=== PATIENT | male | born 1990 | race Caucasian/White ===

== ENCOUNTER 2021-02-19 13:20 | Outpatient (REF) | payer MEDICAID, SELFPAY ==
--- NOTE | 2021-02-19 13:00 | EEG_ITS ---
The waking background activity consists of a well-defined moderate voltage, 11 hertz posterior alpha frequency that is seen symmetrically and attenuates well with eye opening while low-voltage fast frequencies predominant anteriorly. Drowsiness is characterized with diffuse theta slowing. During sleep, symmetrical frontal, central sleep spindles develop over both hemispheres. Arousals are unremarkable. The patient remains asymptomatic. No focal, lateralizing, or paroxysmal discharges seen. IMPRESSION: This 24-hour ambulatory EEG is within normal limits. MD LEMUEL Crouch/[place] / [id number]
== END 2021-02-19 13:21 | disposition home or self-care (01) ==
LOC: HO.NEURO 13:20
PROVIDERS: Visit Provider Psychiatry & Neurology Neurology
DX: G40.209 Localization-related (focal) (partial) symptomatic epilepsy and epileptic syndromes with complex partial seizures, not intractable, without status epilepticus (principal); G47.50 Parasomnia, unspecified
CPT/HCPCS: 95708

== ENCOUNTER 2021-09-10 12:43 | Outpatient (REF) | payer MEDICAID, SELFPAY ==
[2021-09-10 12:59] LABS: MANUAL DIFF FLAG NO
[2021-09-10 13:11] LABS: Basophils Percent Auto 0.4 % (0-2); Eosinophils Absolute Auto 0.2 X10*3/uL (0.0-0.4); Hematocrit 43.3 % (42.0-52.0); Hemoglobin 14.7 g/dl (14.0-18.0); Imm Gran Abs Auto 0.04 X10*3/uL (0.00-0.03); Imm Gran Pct Auto 0.5 % (0.0-0.4); Lymphocytes Absolute Auto 2.5 X10*3/uL (1.2-4.9); Lymphocytes Percent Auto 33.6 % (20-40); Mean Corpuscular HGB Conc 33.9 g/dl (31.0-36.0); Mean Corpuscular Hemoglobin 30.4 pg (27.0-33.0); Mean Corpuscular Volume 89.6 fL (80.0-98.0); Mean Platelet Volume 12.1 fL (9.4-12.4); Monocytes Absolute Auto 0.6 X10*3/uL (0.1-1.2); Monocytes Percent Auto 7.9 % (2-11); Neutrophils Absolute Auto 4.2 x10*3/uL (2.0-8.3); Neutrophils Percent Auto 55.6 % (45-73); Platelet Count 190 X10*3/uL (160-400); Red Blood Count 4.83 X10*6/uL (4.60-5.80); Red Cell Distribution Width 12.4 % (11.0-16.0); White Blood Count 7.5 X10*3/uL (4.8-10.8)
[2021-09-10 13:39] LABS: Alanine Aminotransferase 36 U/L (0-40); Albumin Level 4.2 g/dL (3.5-5.0); Alkaline Phosphatase 83 U/L (39-117); Anion Gap 12 (12-20); Aspartate Amino Transferase 21 U/L (5-37); Bilirubin Total 0.3 mg/dL (0.0-1.0); Blood Urea Nitrogen 11 mg/dL (9-16); Calcium 9.5 mg/dL (8.4-10.2); Carbon Dioxide 25 mmol/L (22-29); Chloride 109 mmol/L (96-108); Estimated Glomerular Filt Rate > 60; Glucose Fasting 112 mg/dL (60-99); Potassium 4.2 mmol/L (3.3-5.1); Sodium 142 mmol/L (135-145); Total Protein 7.5 g/dL (6.5-8.0)
[2021-09-10 13:54] LABS: TSH reflex Free T4 1.07 uIU/mL (0.32-4.0)
[2021-09-10 14:08] LABS: Rheumatoid Factor < 15.0 IU/mL (<15.0)
[2021-09-10 14:40] LABS: Erythrocyte Sedimentation Rate 11 MM/HR (0-15)
[2021-09-10 14:41] LABS: Appearance Urine CLEAR; Color Urine YELLOW; Glucose Urine UA NEG (NEG); Leukocyte Esterase Urine NEG (NEG); Nitrite Urine NEG (NEG); Specific Gravity - Urine >= 1.030 (1.005-1.025); Urine Blood NEG (NEG); Urine Ketones 5 MG/DL (NEG); Urine Protein NEG (NEG-TRACE)
[2021-09-12 13:32] LABS: CRP High Sensitivity 3.6 mg/L
[2021-09-12 18:57] LABS: Lyme Abs Screen <0.90 index
[2021-09-16 15:26] LABS: Anti Nuclear Antibody Pattern Nuclear, Homogeneous; Anti Nuclear Antibody Screen POSITIVE (NEGATIVE)
== END 2021-09-10 12:44 | disposition home or self-care (01) ==
LOC: HO.LAB 12:43
PROVIDERS: PCP Nurse Practitioner Family; Visit Provider Family Medicine
DX: Z00.00 Encounter for general adult medical examination without abnormal findings (principal); M25.50 Pain in unspecified joint
CPT/HCPCS: 36415; 80053; 81003; 84443; 85025; 85652; 86038; 86039; 86141; 86431; 86617; 86618

== ENCOUNTER 2021-09-27 11:37 | Outpatient (REF) | payer MEDICAID, SELFPAY ==
[2021-09-27 14:28] LABS: Estimated Average Glucose 85 mg/dL; Hemoglobin A1c % 4.6 %
== END 2021-09-27 11:38 | disposition home or self-care (01) ==
LOC: HO.WFDLDS 11:37
PROVIDERS: Visit Provider Family Medicine
DX: R73.01 Impaired fasting glucose (principal)
CPT/HCPCS: 36415; 83036

== ENCOUNTER 2022-04-22 13:35 | Outpatient (REF) | payer MEDICARE, MEDICAID, SELFPAY ==
--- NOTE | ~2022-04-22 | XR_ITS ---
EXAMINATION: XR PELVIS CLINICAL INFORMATION: Sacrococcygeal pain. COMPARISON: 10/06/2018 TECHNIQUE: AP view of the pelvis. FINDINGS: Mild sclerotic changes of the sacroiliac joint. Pubic symphysis is intact. The sacrum is partially obscured by overlying bowel contents. Hip joint appear symmetric. No abnormal soft tissue calcification. XR/XR pelvis 1-2V IMPRESSION: Mild right sacroiliitis.
== END 2022-04-22 13:36 | disposition home or self-care (01) ==
LOC: HO.XRAY 13:35
PROVIDERS: PCP Family Medicine; Visit Provider Nurse Practitioner Family
DX: M53.3 Sacrococcygeal disorders, not elsewhere classified (principal); R79.82 Elevated C-reactive protein (CRP); R76.8 Other specified abnormal immunological findings in serum; M25.50 Pain in unspecified joint
CPT/HCPCS: 72170; 99202

== ENCOUNTER 2022-06-04 14:00 | Outpatient (RCR) | payer MEDICAID, SELFPAY ==
--- NOTE | 2022-05-02 17:04 | MHC.PT.EP ---
[facility] [place] Office [place] Office [place] Office [address] Rosi Philip [address] [phone] F: [phone] F: [phone] F: [phone] F: [phone] Physical Therapy Plan of Care Date of Evaluation: Date of Surgery: Diagnosis: SI joint pain Assessment: Pt is a 31 y/o male with relatively new onset of polyarthralgia is referred to PT for eval and treat of SI joint pain resulting in decreased tolerance for standing and walking for duration, tolerating static postures, lifting objects of weight and disturbed sleep secondary to decreased core and hip strength, decreased lumbar ROM, increased lumbar tissue tension, lumbar instability and evidence of mild R sacroiliitis on XR. Pt is deemed an appropriate candidate to receive skilled PT in order to address his physical limitations to improve his functional ability. Frequency and Duration: The patient will be seen 2 x / wk x 6 wks. Short Term Goals: Initiate HEP with evidence of compliance. Improve baseline pain with activity from 8/10 to < 6/10. Licensing Director Goals: I with HEP. Pt will be able to tolerate standing tasks > 1 hour; initial: 10 min. Pt will report no more than 1/4 disturbed night's sleep d/t back pain; initial: 3/4 disturbed. Improve core strength to > good; initial fair (-) limited by weakness and pain. Treatment Plan: Modalities to reduce pain, spasms and effusion. Manual therapy to restore motion and function. Therapeutic exercise to improve strength and flexibility. Neuromuscular re-education for posture and balance. Therapeutic activities to return to functional activities of daily living. Electronically signed by: Michael Potts PT. Please sign and return to therapist. Thank you for your referral.
--- NOTE | 2022-09-18 15:11 | MHC.PT.DC ---
[facility] [place] Office [place] Office [place] Office [address] Rosi Philip [address] [phone] F: [phone] F: [phone] F: [phone] F: [phone] Physical Therapy Discharge Report Diagnosis: SI joint pain Date of Surgery: Date of Evaluation: 05/02/22 Date of Discharge: 09/18/22 Treatments to Date: 6 Cancellations to Date: 2 No Shows to Date: 3 Discharge Status: Visit Non-compliance Discharge Summary: Pt returns after a couple of difficulty weeks for personal reasons. returned to basics of lumbar stab with needed review. good overall tolerance for activities. No adverse effects. Progress NV. as angel. Pt to 1 x/ wk Electronically signed by: Michael Potts PT. Please sign and return to therapist. Thank you for your referral.
== END 2022-09-18 14:56 | disposition home or self-care (01) ==
LOC: HO.PTCHIC 14:00
PROVIDERS: PCP Family Medicine; Visit Provider Nurse Practitioner Family
DX: M53.3 Sacrococcygeal disorders, not elsewhere classified (principal)
CPT/HCPCS: 97110; 97140; 97161

== ENCOUNTER 2023-09-02 14:38 | Outpatient (AMB) | payer SELFPAY ==
[2023-09-02 14:54] VITALS: BP 138/78; PULSE 110; O2SAT 99; BMI 27.2
--- NOTE | 2023-09-02 14:54 | MHC.PC.OV ---
Vital Signs 09/02/23 14:54 Height 6 ft 2 in Weight 212 lb 4 oz BMI 27.2 BP 138/78 Blood Pressure Location Lt brachial Position Sitting Pulse 110 H Pulse Source Pulse Oximeter Pulse Oximetry (%) 99 Oxygen Delivery Method Room Air Intake Visit Reasons: Follow up polyarthralgia, and meds Intake Note: Patient is following up on polyarthralgia and medications. 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 Allergies Penicillins [PENICILLINS] Allergy (Intermediate, Verified 09/02/23 14:59) RASH allium Adverse Reaction (Severe, Uncoded 09/02/23 14:59) Abdominal Pain Tobacco use date assessed: 11/07/22 HPI Follow up polyarthralgia, and meds HPI Details 32 y/o male presents to f/u polyarthalgia and meds. Has been diagnosed with ankylosing spondylitis. He reports he has been using prednisone every now and then for relief. He reports he has not been using other medications as he had been worried about them affecting his liver enzymes. Pt notes he needs refrigeration for his meds and electricity has been shut off. He is requesting a note for this. HPI Comments History of Present Illness Details Documentation assistance for Nicholas Ochoa MD, was provided by Casey Lopez, Electron Beam Machine Welder Setter on 09/02/2023 3:01 PM FERNANDA. Brian, Dr. Ochoa, have read, observed, and verified documentation. [facility] Medical History (Updated 11/07/22 @ 15:24 by Casey Lopez) Migraines Erectile dysfunction ADD (attention deficit disorder) Bipolar 1 disorder Surgical History History of endoscopy Family History Other Mental health disorder Substance use disorder Social History Housing: Apartment Alcohol intake: current Alcohol intake frequency: a few times a month Patient Tobacco Use Status: Current everyday Tobacco user Tobacco use type: Cigarette, Cigar and Pipe Cigarette Packs Per Day: 1 e-Cigarette/Vaping Use: Currently Using Second Hand Smoke Exposure: No service: No Current occupational status: employed 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 Pancho Jackson, Navya Lr, Isai Zhang and colleagues, with an educational rosangela from [employer]. Review of Systems Const Denies chills, Denies fatigue, Denies fever(s), Denies headache(s) and Denies weakness ENT Denies dizziness and Denies headache(s) Card Denies dyspnea Resp Denies cough, Denies dyspnea, Denies wheezing and Denies other (shortness of breath) Musc Denies numbness and Denies tingling Neuro Denies dizziness, Denies headache(s), Denies numbness, Denies tingling and Denies weakness Psych Denies anxiety and Denies depression Endo Denies fatigue Aller/Immun Denies wheezing Physical exam (Primary Care) Vital Signs: Last Vital Signs Pulse 110 H 09/02/23 14:54 BP 138/78 09/02/23 14:54 Pulse Ox 99 09/02/23 14:54 Oxygen Delivery Method Room Air 09/02/23 14:54 BMI result Body Mass Index 27.2 Tobacco/Smoking Status: Tobacco use Status Tobacco use date assessed 11/07/22 09/02/23 15:00 Patient Tobacco Use Status Current everyday Tobacco 09/02/23 15:00 Tobacco use type Cigarette,Pipe,Cigar 09/02/23 15:00 e-Cigarette/Vaping Use Currently Using 09/02/23 15:00 Thrive Assessment: Date of Thrive Assessment Date Thrive assessed 11/07/22 09/02/23 15:00 Const General: well developed; No acute distress Nutritional Appearance: well nourished Orientation/consciousness: patient oriented x3 HENMT Head: Yes normocephalic and Yes atraumatic Eyes General: appearance normal, both eyes and all related structures Pupils: Equal, round and reactive pupils present EOM: EOMs intact bilaterally Resp Effort & Inspection: normal respiratory effort Neuro General: patient oriented x3 and gait normal Cranial nerves: Yes Equal, round and reactive pupils present Psych Affect: normal affect Assessment and Plan Assessment & Plan (1) Polyarthralgia: Comment: Code(s): M25.50 - Pain in unspecified joint Plan: Ongoing?polyarthralgia?and?back?pain?and?history?of?ankylosing?spondylitis. He?is?using?prednisone?as?treatment. He?has?not?seen?a?crushing machine operator?in?quite?some?time We?discussed?that?long-term?prednisone?can?have?significant?adverse?effects?and?I?would?like?him?to?see?a?crushing machine operator?again?to?see?if?other?treatments?will?be?helpful?so?he?can?rely?less?on?prednisone. Will?give?him?meloxicam?in?the?meantime?to?see?if?he?can?wean?down?prednisone?use. Has?been?on?Humira?and?should?have?this?managed?by?Rheumatology (2) Ankylosing spondylitis: Code(s): M45.9 - Ankylosing spondylitis of unspecified sites in spine Plan: As?above (3) Hidradenitis: Code(s): L73.2 - Hidradenitis suppurativa Plan: Patient?currently?on?Humira Patient?notes?that?he?needs?refrigeration?for?some?of?his?medications?and?electricity?has?been?shut?off Will?fill?out?forms?for?patient Orders: Referrals Rheumatology Referral L73.2 - Hidradenitis suppurativa, M25.50 - Pain in unspecified joint, M45.9 - Ankylosing spondylitis of unspecified sites in spine Medications: New meloxicam 15 mg PO DAILY 30 tabs 2RF 30 days M45.9 - Ankylosing spondylitis of unspecified sites in spine Coding Level of Care Code Est Pt Level 4 (57978) Diagnoses Polyarthralgia M25.50 Ankylosing spondylitis M45.9 Hidradenitis L73.2
== END 2023-09-02 15:32 | disposition home or self-care (01) ==
PROVIDERS: PCP Family Medicine; Visit Provider Family Medicine
DX: M25.50 Pain in unspecified joint (principal); M45.9 Ankylosing spondylitis of unspecified sites in spine; L73.2 Hidradenitis suppurativa
CPT/HCPCS: 99214

== ENCOUNTER 2023-09-22 09:56 | Outpatient (AMB) | payer MEDICAID, SELFPAY ==
[2023-09-22 09:58] VITALS: BP 98/60; PULSE 125; TEMP 36.4; O2SAT 98; BMI 26.5
--- NOTE | 2023-09-22 09:58 | A.OFFVIS_ITS ---
Intake Vital Signs 09/22/23 09:58 Height 6 ft 2 in Weight 206 lb 9.17 oz BMI 26.5 BP 98/60 Blood Pressure Location Rt brachial Position Sitting Pulse 125 H Pulse Source Pulse Oximeter Temp 97.6 F Temp Source Skin Pulse Oximetry (%) 98 Oxygen Delivery Method Room Air Intake Visit Reasons: Ankylosing spondylitis Intake Note: New patient internally referred to us presents today for ankylosing spondylitis. Previously seeing Dr. Lockhart. Reports tere middle trigger finger x 2 years Home Care Manager Rn Required: No Accompanied by: Self / Same As Patient Allergies Penicillins [PENICILLINS] Allergy (Intermediate, Verified 09/22/23 09:58) RASH allium Adverse Reaction (Severe, Uncoded 09/22/23 09:58) Abdominal Pain HPI HPI Comments History of Present Illness Details Keith Slater is a pleasant 32 year old male who presents today with complaints of multiple joint pain, more severe to his right SI joint. He states the pain started suddenly around February 2021 and thinks it was related to taking Humira. The humira was prescribed by his field human resources manager for hidradenitis suppurativa with good effect but had he stopped due to possibility of medication contributing to his joint pain. However, he noticed that even six months after stopping the Humira the pain continued and has progressively worsened since. He reports pain in his shoulders, hands, elbows, knees and from his hips. He denies any numbness, tingling, saddle anesthesia, weakness or bowel/bladder dysfunction. He was referred to [facility] for Ankylosing Spondylitis in December [address] was evaluated [address] Lockhart with no findings. He has also been under the care of rheumatology through [facility] due to elevated inflammtory markers but states no treatments were offered. He has been prescribed prednisone by his PCP since August 2021 which has been effective. He currently takes prednisone 10 mg q.d.. And has been tapering from 15 mg q.d. due to PCP's warning on concerns for long-term side effects such as bone loss. He reports pain onset was constant and rates the pain a 5-10/10. He states the pain is interfering with sleep, activities of daily living and he cannot function normally. The patient reports the pain aching, stabbing and throbbing. The pain is exacerbated by prolonged sitting/standing as well as activity, such as flexion of hips. He has also been taking tylenol, meloxicam, voltaren and CBD with partial relief. He denies any physical therapy, chiropractic manipula tion, massage or acupuncture. Denies any previous back injections or surgery. Denies any imaging of the pelvis. He believes he had some imaging of his hands and knees performed at [facility] which were reportedly normal. He denies psoriasis, uveitis, dactylitis, plantar fasciitis, Crohn's, and ulcerative colitis. He has stiffness especially in hips and and lower back. He admits to tenderness and tightness to bilateral Achilles tendons. Upon further inquiry for connective tissue disease (CTD), patient denies Raynaud's phenomenon, butterfly rash on face or other rashes; denies photosensitivity - getting sick or developing a rash from being out in the sun; denies blood or froth in urine; patient denies hx of SOB, chest pain. Patient denies hx of Carditis or Pleuritis. Patient denies any history of DVT/PE. Denies fevers, excessive fatigue, unexplained weight-loss or weight-gain, Denies: thinning hair or hair loss; Denies: dry, itchy eyes, red burning eyes needing steroids to treat; dry mouth, mouth sores or ulcers; nose bleed; ringing in the ear. He has a history of IBS with occasional abdominal pain, constipation and diarrhea, but denies blood or mucous in stool, nausea and vomiting, difficulty swallowing and heartburn. He has Psychological history significant for Bipolar Disorder and is well managed. Malignancy screening: denies personal cancer hx. 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 Migraines Erectile dysfunction ADD (attention deficit disorder) Bipolar 1 disorder Surgical History History of endoscopy Family History (Updated 09/22/23 @ 10:03 by ROSA Knowles) Mother Lupus Father Ankylosing spondylitis Other Mental health disorder Substance use disorder Social History (Updated 09/22/23 @ 10:02 by ROSA Knowles) Housing: Apartment Alcohol intake: current Alcohol intake frequency: a few times a month Patient Tobacco Use Status: Current everyday Tobacco user Tobacco use type: Smokeless Tobacco Cigarette Packs Per Day: 1 e-Cigarette/Vaping Use: Currently Using Second Hand Smoke Exposure: No service: No Current occupational status: employed 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 External ear normal, canal clear and tympanic membrane normal. NOSE/SINUS:? Airflow through both nares, no nasal discharge, no bleeding THROAT:? Oral mucosa moist, no ulcerations NECK:? No thyromegaly or masses, no adenopathy, trachea midline. HEART:? Regulrar rhythm, S1-S2 heard, no murmurs, rubs or gallops. LUNG:? Clear to percussion and auscultation ABD:? Normal bowel sounds, no organomegaly, masses or tenderness. EXTREMITIES:? No edema, no calf tenderness, normal peripheral pulses. NEURO:? Oriented and alert x3.? No focal weakness.? Reflexes symmetric.? Gait normal. SKIN:? HS to bilateral axilla and groin. No objective signs of Raynaud's phenomenon. JOINT EXAM: Cervical Spine:.? Full range of motion without pain; no tenderness. Thoracic Spine:.? No scoliosis.? No tenderness on palpation. Lumbar Spine:.? Alignment normal.? Full range of motion without pain, no tenderness. Unable to touch toes, flexion with stiffness Chest Wall:.? No tenderness, swelling, increased warmth or erythema. Hands:.? Normal pain-free range of motion without tenderness, swelling, increased warmth or erythema. Able to make a full fist and has a good technology integration specialist strength. Wrists:.? Normal pain-free range of motion without tenderness, swelling, increased warmth or erythema. Elbows:. Normal pain-free range of motion without tenderness, swelling, increased warmth or erythema. Shoulders:.?? Full range of motion without pain. No tenderness, weakness, swelling, increased warmth or erythema. Hips:.? Full range of motion without pain. Hip bursa:.? No tenderness. Knees:.?? Normal pain-free range of motion without tenderness, swelling, increased warmth or erythema.? There is no effusion or crepitation Ankles:.? Normal pain-free range of motion without tenderness, swelling, increased warmth or erythema. Tender achilles bilateral Feet:.? Normal pain-free range of motion without tenderness, swelling, increased warmth or erythema. Tender points:? No tenderness to digital palpation at the occiput, trapezius, second rib, lateral epicondyle, knees, greater trochanter and gluteal area bilaterally. Results Reviewed Results Reviewed: Laboratory Tests 09/10/21 12:57 Rheumatoid Factor < 15.0 IAIN Screen POSITIVE A IAIN Titer 1:640 H Lyme Screen IgG & IgM <0.90 04/22/2022 pelvic x-ray COMPARISON: 10/06/2018 TECHNIQUE: AP view of the pelvis. FINDINGS: Mild sclerotic changes of the sacroiliac joint. Pubic symphysis is intact. The sacrum is partially obscured by overlying bowel contents. Hip joint appear symmetric. No abnormal soft tissue calcification. XR/XR pelvis 1-2V IMPRESSION: Mild right sacroiliitis. 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 The clinical history reflects that he was taking Humira for hidradenitis Superativa and when that was stopped his lower back, hips and SI joint pain started. He is in the demographics I have reviewed Xrays that shows Sacroillitis, and lower back DDD. The patient's complaints of severe, hip pain, and intermittent peripheral joint pain, achilles tenderness, elbow tendinitis, father with and the therapeutic response to Prednisone, helps to complete the picture. Given that the patient was on Humira before, I think it is appropriate to restart HUMIRA to treat the and simultaneously address the HS. I will obtain updated lumbar and SI joint x-rays and labs. Hidradenitis Suppurativa: The patient had stop taking the Humira due to concerns of inappropriate dosing and when his pain started further misunderstood thinking Humira might have been the cause for his joint pain He does admit that HUMIRA was effective for the HS. #Senior Ui Developer Use of Immunosuppressant: I reviewed and patient was already aware of the possible side effects of using Humira; verbalized understanding. I will obtain updated CBC and chemistry for baseline, Hepatitis panel and TB . 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, Z79.899 - Other skilled nursing (current) drug therapy Anti Extractable Nuclear Ag 09/22/23 M45.A7 - 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 T Spot TB 09/22/23 M45.A7 - 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 XR sacroiliac joint min 3V 09/22/23 M45.A7 - 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
== END 2023-09-22 10:55 | disposition home or self-care (01) ==
PROVIDERS: PCP Family Medicine; Visit Provider Nurse Practitioner Family
DX: M45.A7 Non-radiographic axial spondyloarthritis of lumbosacral region (principal); M53.3 Sacrococcygeal disorders, not elsewhere classified; L73.2 Hidradenitis suppurativa; Z79.60 Long term (current) use of unspecified immunomodulators and immunosuppressants
CPT/HCPCS: 99204

== ENCOUNTER → 2023-09-22 09:56 | Outpatient (BNVA) | payer OTHER, SELFPAY | LOC: CF 09-23 12:44 | PROVIDERS: PCP Family Medicine; Visit Provider Nurse Practitioner Family | DX: M45.A7 Non-radiographic axial spondyloarthritis of lumbosacral region (principal); M65.332 Trigger finger, left middle finger; M65.331 Trigger finger, right middle finger; M53.3 Sacrococcygeal disorders, not elsewhere classified; L73.2 Hidradenitis suppurativa; Z79.60 Long term (current) use of unspecified immunomodulators and immunosuppressants | CPT/HCPCS: 99212 ==

== ENCOUNTER 2023-09-23 12:45 | Outpatient (REF) | payer OTHER, SELFPAY ==
--- NOTE | ~2023-09-23 | XR_ITS ---
EXAMINATION: XR LUMBOSACRAL SPINE CLINICAL INFORMATION: Lumbosacral spondyloarthritis. COMPARISON: Radiographs dated 09/26/2018. TECHNIQUE: AP and lateral views of the lumbar spine and lateral view of the lumbosacral junction. FINDINGS: The vertebral bodies and posterior elements are normal. The disc spaces are preserved and the vertebral alignment is normal. The paraspinal soft tissues are normal. XR/XR lumbar spine 2-3V IMPRESSION: Unremarkable examination.
--- NOTE | ~2023-09-23 | XR_ITS ---
EXAMINATION: XR SACROILIAC JOINTS CLINICAL INFORMATION: Question ankylosing spondylitis. COMPARISON: None available. TECHNIQUE: AP and bilateral Judet views of the sacroiliac joints FINDINGS: Bones and soft tissues are normal. No fracture. Alignment is anatomic. Sacroiliac joint spaces are well-maintained without erosions or surrounding sclerosis. No bony ankylosis is noted. XR/XR sacroiliac joint min 3V IMPRESSION: Normal sacroiliac joints.
--- NOTE | ~2023-09-23 | XR_ITS ---
EXAMINATION: XR FOOT, RIGHT CLINICAL INFORMATION: Achilles enthesopathy. COMPARISON: None available. TECHNIQUE: AP, lateral, and oblique views of the right foot. FINDINGS: Bony mineralization is normal. There is a pes cavus configuration. No fracture, dislocation or left ankle joint effusion is seen. Boehler's angle is normal. There is no calcaneal spur. No focal soft tissue swelling, gas or foreign body is seen. XR/XR foot LT min 3V IMPRESSION: 1. There is a pes cavus configuration. 2. No fracture, dislocation or left ankle joint effusion is seen. EXAMINATION: XR FOOT, LEFT CLINICAL INFORMATION: Achilles enthesopathy. COMPARISON: None available. TECHNIQUE: AP, lateral, and oblique views of the left foot. FINDINGS: Bony mineralization is normal. There is a pes cavus configuration. No fracture, dislocation or left ankle joint effusion is seen. Boehler's angle is normal. There is no calcaneal spur. No focal soft tissue swelling, gas or foreign body is seen.
--- NOTE | ~2023-09-23 | XR_ITS ---
EXAMINATION: XR FOOT, RIGHT CLINICAL INFORMATION: Achilles enthesopathy. COMPARISON: None available. TECHNIQUE: AP, lateral, and oblique views of the right foot. FINDINGS: Bony mineralization is normal. There is a pes cavus configuration. No fracture, dislocation or left ankle joint effusion is seen. Boehler's angle is normal. There is no calcaneal spur. No focal soft tissue swelling, gas or foreign body is seen. XR/XR foot RT min 3V IMPRESSION: 1. There is a pes cavus configuration. 2. No fracture, dislocation or left ankle joint effusion is seen. EXAMINATION: XR FOOT, LEFT CLINICAL INFORMATION: Achilles enthesopathy. COMPARISON: None available. TECHNIQUE: AP, lateral, and oblique views of the left foot. FINDINGS: Bony mineralization is normal. There is a pes cavus configuration. No fracture, dislocation or left ankle joint effusion is seen. Boehler's angle is normal. There is no calcaneal spur. No focal soft tissue swelling, gas or foreign body is seen.
[2023-09-23 13:02] LABS: MANUAL DIFF FLAG NO
[2023-09-23 13:27] LABS: Basophils Absolute Auto 0.1 X10*3/uL (0.0-0.2); Basophils Percent Auto 0.5 % (0-2); Eosinophils Absolute Auto 0.1 X10*3/uL (0.0-0.4); Eosinophils Percent Auto 0.6 % (0-4); Hematocrit 45.9 % (42.0-52.0); Hemoglobin 15.9 g/dl (14.0-18.0); Imm Gran Abs Auto 0.04 X10*3/uL (0.00-0.03); Imm Gran Pct Auto 0.3 % (0.0-0.4); Lymphocytes Absolute Auto 1.6 X10*3/uL (1.2-4.9); Lymphocytes Percent Auto 13.5 % (20-40); Mean Corpuscular HGB Conc 34.6 g/dl (31.0-36.0); Mean Corpuscular Volume 89.5 fL (80.0-98.0); Mean Platelet Volume 10.1 fL (9.4-12.4); Monocytes Absolute Auto 0.6 X10*3/uL (0.1-1.2); Monocytes Percent Auto 4.8 % (2-11); Neutrophils Absolute Auto 9.3 x10*3/uL (2.0-8.3); Neutrophils Percent Auto 80.3 % (45-73); Platelet Count 321 X10*3/uL (160-400); Red Blood Count 5.13 X10*6/uL (4.60-5.80); Red Cell Distribution Width 11.9 % (11.0-16.0); White Blood Count 11.6 X10*3/uL (4.8-10.8)
[2023-09-23 13:48] LABS: Alanine Aminotransferase 17 U/L (0-40); Albumin Level 5.1 g/dL (3.5-5.0); Alkaline Phosphatase 74 U/L (39-117); Anion Gap 17 (12-20); Aspartate Amino Transferase 18 U/L (5-37); Bilirubin Total 0.9 mg/dL (0.0-1.0); Blood Urea Nitrogen 14 mg/dL (9-16); C Reactive Protein 0.13 mg/dL (< or = 0.50); Calcium 9.8 mg/dL (8.4-10.2); Carbon Dioxide 23 mmol/L (22-29); Chloride 106 mmol/L (96-108); Estimated Glomerular Filt Rate > 60; Glucose Random 94 mg/dL (60-115); Potassium 3.6 mmol/L (3.3-5.1); Sodium 142 mmol/L (135-145); Total Protein 8.4 g/dL (6.5-8.0)
[2023-09-23 14:06] LABS: HBS Num1 0.56 mIU/mL (0-7.99); HBc Num1 0.03 S/CO (0.00-0.79); HBsAGNum1 0.24 S/CO (0.00-0.99); Hepatitis A Antibody IgM 0.11 Index (0-0.79); Hepatitis B Core Antibody Nonreactive (Nonreactive); Hepatitis B Surface Antigen Negative (Negative); ~HepC Num1 0.12 S/CO (0.00-0.79); ~Hepatitis A Antibody IgM Nonreactive (Nonreactive); ~Hepatitis B Surface Antibody NONREACTIVE (Nonreactive); ~Hepatitis C Antibody Nonreactive (Nonreactive)
[2023-09-23 14:43] LABS: Erythrocyte Sedimentation Rate 4 MM/HR (0-15)
[2023-09-24 20:34] LABS: SM/Ribonucleoprotein Ab <1.0 NEG AI (<1.0 NEG); Smith Protein <1.0 NEG AI (<1.0 NEG)
[2023-09-25 12:27] LABS: TS Negative Control Passed; TS Panel A 0; TS Panel B 1; TS Positive Control Passed; TSpotTB Negative (Negative)
[2023-09-28 11:28] LABS: HLA B27 Negative (Negative)
[2023-09-29 12:58] LABS: Anti Nuclear Antibody Pattern Nuclear, Homogeneous; Anti Nuclear Antibody Screen POSITIVE (NEGATIVE)
== END 2023-09-23 12:46 | disposition home or self-care (01) ==
LOC: HO.XRAY 12:45
PROVIDERS: PCP Family Medicine; Visit Provider Nurse Practitioner Family
DX: Z11.1 Encounter for screening for respiratory tuberculosis (principal); M45.A7 Non-radiographic axial spondyloarthritis of lumbosacral region; Z79.899 Other long term (current) drug therapy; Q66.72 Congenital pes cavus, left foot; Q66.71 Congenital pes cavus, right foot
CPT/HCPCS: 36415; 72100; 72202; 73630; 80053; 85025; 85652; 86038; 86039; 86140; 86235; 86481; 86704; 86706; 86709; 86803; 86812; 87340